=== PATIENT | male | born 1985 | race Two or more races ===

== ENCOUNTER 2020-09-11 19:15 | Emergency (ER) | payer SELFPAY ==
[~2020-09-11] VITALS: Ht 167.6 cm; Wt 82.0 kg
--- NOTE | 2020-09-11 19:35 | NUR ---
CC OF THROAT SWELLING AFTER EATING TODAY STARTING AT 1800. PT UG[place]AN SPEAKING, GF AT BEDSIDE AND PT REQUESTING SHE TRANSLATE. PTS GF STATES HE WAS EATING [place] TODAY AND THEN PTS THROAT STARTED CLOSING UP AND PTS BILAT LEG HAVE RAISED BUMPS THAT PT IS SCRATCHING. PT DID TAKE 25 MG BENADRYL AT HOME. PTS GF STATES THIS HAS HAPPENED AT LEAST TWO OTHER TIMES IN THE LAST FEW DAYS AFTER EATING MEATS AND EGGS BUT HAS GONE AWAY ON ITS OWN AFTER A FEW HOURS.
[2020-09-11] MEDS ORDERED: methylPREDNISolone SOD SUCC 125 MG/2 ML ONE (20:20)
[2020-09-11] MEDS ORDERED: DIPHENHYDRAMINE 50 MG/ML, 1ML ONE (20:20)
[2020-09-11] MEDS ORDERED: SODIUM CHLORIDE 0.9% 1,000ML IVBOLUS ONE (20:30)
[2020-09-11] MEDS ORDERED: FAMOTIDINE 20 MG/2 ML IVPush ONE (20:30)
[2020-09-11] MEDS ORDERED: FAMOTIDINE IV SCH (20:30)
[2020-09-11] MEDS ORDERED: DIPHENHYDRAMINE 50 MG/ML, 1ML IVPush ONE (20:30)
[2020-09-11] MEDS ORDERED: methylPREDNISolone SOD SUCC 125 MG/2 ML IVPush ONE (20:30)
[2020-09-11] MEDS ORDERED: DEXTROSE 5% IV SCH (20:30)
[2020-09-11 21:23] VITALS: BP 126/73
--- NOTE | 2020-09-11 21:24 | NUR ---
PT REPORTS FEELING BETTER, STATES THROAT IS LESS SWOLLEN, LESS RAISED WELTS ON BILAT LEGS NOW.
== END 2020-09-11 21:52 | disposition home or self-care (01) ==
LOC: ED 21:43
DX: L50.0 Allergic urticaria (principal); T78.49XA Other allergy, initial encounter
CPT/HCPCS: 96365; 96375; 99284; J1200; J2930; J7030